=== PATIENT | female | born 1955 | race Caucasian/White ===

== ENCOUNTER 2016-09-11 08:29 | Day surgery (SDC) | payer BC ==
[~2016-09-11] VITALS: Ht 180.3 cm; Wt 75.1 kg
[2016-09-11 08:59] VITALS: BP 148/89; PULSE 90; RESP 18; TEMP 97.9; O2SAT 100
[2016-09-11] MEDS ORDERED: SODIUM CHLOR 0.9% 1000 ML INJ 1,000 ML IV SCH (09:00)
[2016-09-11] MEDS ORDERED: HYDR25TA5 PO (09:03)
[2016-09-11] MEDS ORDERED: HYDR-3516 PO (09:03)
[2016-09-11] MEDS ORDERED: POTA8TAB PO (09:03)
[2016-09-11] MEDS ORDERED: CYCL1TAB29 PO (09:03)
[2016-09-11] MEDS ORDERED: DICL1GEL TOPICAL (09:03)
[2016-09-11 09:22] LABS: AUTOMATED NEUTROPHIL # 2.7 TH/MM3 (1.8-7.7); BASOPHIL % 0.6 % (0.0-2.0); EOSINOPHIL # 0.1 TH/MM3 (0-0.4); EOSINOPHIL % 2.6 % (0.0-4.0); HEMATOCRIT 38.9 % (35.0-46.0); HEMO FLAGS DIFF FINAL; LYMPH % 29.6 % (9.0-44.0); LYMPHOCYTE # 1.4 TH/MM3 (1.0-4.8); MEAN CELL VOLUME 89.5 FL (80.0-100.0); MEAN CORPUSCULAR HEMOGLOBIN 30.9 PG (27.0-34.0); MEAN CORPUSCULAR HGB CONC 34.6 % (32.0-36.0); MONO % 8.9 % (0.0-8.0); NEUT % 58.3 % (16.0-70.0); PLATELET COUNT 239 TH/MM3 (150-450); RED BLOOD COUNT 4.35 MIL/MM3 (4.00-5.30); RED CELL DISTRIBUTION WIDTH 13.1 % (11.6-17.2); WHITE BLOOD COUNT 4.7 TH/MM3 (4.0-11.0)
[2016-09-11 09:32] LABS: PROTHROMBIN TIME - PATIENT 10.7 SEC (9.8-11.6)
[2016-09-11 09:44] LABS: BICARBONATE 32.6 MEQ/L (21.0-32.0)
[2016-09-11 09:54] LABS: POTASSIUM 2.7 MEQ/L (3.5-5.1)
[2016-09-11] MEDS ORDERED: POTASSIUM CHLORIDE 20 MEQ CONTROLLED RELEASE TAB PO ONE ×2 (09:58→12:15)
[2016-09-11] MEDS ORDERED: MIDAZOLAM HCL 2 MG/2 ML VIAL ONE ×4 (11:23→12:20)
[2016-09-11] MEDS ORDERED: SODIUM BICARBONATE 8.4% INJ 50 ML ONE (11:23)
[2016-09-11] MEDS ORDERED: LIDOCAINE 1%/EPINEPHrine 1:100,000 SOLN 20 ML VIAL ONE (11:25)
[2016-09-11] MEDS ORDERED: HEPARIN-NS/PF INJ 500 ML ONE (11:53)
[2016-09-11] MEDS ORDERED: LIDOCAINE HCL 1% PF 30 ML VIAL ONE (11:53)
[2016-09-11] MEDS ORDERED: MIDAZOLAM HCL 5 MG/5 ML VIAL ONE (12:35)
--- NOTE | 2016-09-13 14:16 | MP ---
cc: BENITO DEGROOT DATE OF SURGERY: 09/11/2016 PREOPERATIVE DIAGNOSIS Venous ulcer in the right lower extremity. POSTOPERATIVE DIAGNOSIS Venous ulcer in the right lower extremity. PROCEDURE PERFORMED Right lower extremity greater saphenous vein ablation. SURGEON Dr. Degroot. SEDATION Moderate. ESTIMATED BLOOD LOSS Minimal. PROCEDURE The patient's right leg was prepped and draped in sterile fashion from the iliac crest down to the toes. I used duplex ultrasound to access the below-knee right greater saphenous vein. I did use 1% lidocaine for the skin and then using the Seldinger technique exchanged for a 7-[place] sheath. Once I exchanged for the sheath I tried to advance my [employer] radiofrequency ablation catheter through the sheath up through the greater saphenous vein. I was able to make it just above the level of the knee without being able to advance any further. I also tried to advance it over __4 wire, was not able to advance it. I placed tumescent anesthesia around the vein at this level, even though it was a short distance, I performed an ablation for two cycles in 40 seconds below the level and across the level of the knee and the greater saphenous vein. Afterwards I pulled the catheter out and applied pressure. I was able to get in just above an area of a large venous tortuosity in the lower to mid thigh using a similar technique. I then advanced my catheter up to the saphenofemoral junction pullbacks approximately 2.5 cm. Performed an ablation after I performed tumescent anesthesia on this area as well. Afterwards I performed greater saphenous vein ablation of the right greater saphenous vein. I then removed my sheath and the catheter and applied pressure. I did use a dressing from the ankle all the way up to the leg with reinforcements of 4x4s and Matty bandages, especially around the level of my entry sites. I did perform ultrasound before the end of the procedure which showed there did not appear to be a DVT. The patient tolerated the procedure well and was taken to the PACU at the end of the case. DO BRIAN Hemphill/TLL /4:40 PM /1:54 PM
== END 2016-09-11 16:18 | disposition home or self-care (01) ==
LOC: HDIC 08:29 → HCAT 08:29
PROVIDERS: ATTEND Surgery
DX: I87.2 Venous insufficiency (chronic) (peripheral) (principal); L97.919 Non-pressure chronic ulcer of unspecified part of right lower leg with unspecified severity
CPT/HCPCS: 36475; 80048; 85025; 85610; J1644; J2250; J3010

== ENCOUNTER 2016-12-03 06:20 | Day surgery (SDC) | payer BC ==
[~2016-12-03] VITALS: Ht 180.3 cm; Wt 78.0 kg
[~2016-12-03 06:20] MED LIST: CYCL1TAB29 PO; DICL1GEL TOPICAL; HYDR-3516 PO; HYDR25TA5 PO; POTA8TAB PO
[2016-12-03 07:03] VITALS: BP 145/96; PULSE 18; RESP 18; TEMP 98.1; O2SAT 100
[2016-12-03 07:09] LABS: AUTOMATED NEUTROPHIL # 3.3 TH/MM3 (1.8-7.7); BASOPHIL % 0.5 % (0.0-2.0); EOSINOPHIL # 0.1 TH/MM3 (0-0.4); EOSINOPHIL % 1.9 % (0.0-4.0); HEMATOCRIT 40.6 % (35.0-46.0); HEMO FLAGS DIFF FINAL; LYMPH % 32.5 % (9.0-44.0); LYMPHOCYTE # 1.9 TH/MM3 (1.0-4.8); MEAN CELL VOLUME 89.5 FL (80.0-100.0); MEAN CORPUSCULAR HEMOGLOBIN 30.4 PG (27.0-34.0); MONO % 6.9 % (0.0-8.0); NEUT % 58.2 % (16.0-70.0); PLATELET COUNT 297 TH/MM3 (150-450); RED BLOOD COUNT 4.53 MIL/MM3 (4.00-5.30); RED CELL DISTRIBUTION WIDTH 13.9 % (11.6-17.2); WHITE BLOOD COUNT 5.7 TH/MM3 (4.0-11.0)
[2016-12-03] MEDS ORDERED: PERC5TAB12 PO (07:11)
[2016-12-03] MEDS ORDERED: VOLT1GEL4 TOPICAL (07:11)
[2016-12-03 07:15] LABS: PROTHROMBIN TIME - PATIENT 10.6 SEC (9.8-11.6)
[2016-12-03 07:31] LABS: BICARBONATE 34.2 MEQ/L (21.0-32.0)
[2016-12-03] MEDS ORDERED: LIDOCAINE 1%/EPINEPHrine 1:100,000 SOLN 20 ML VIAL ONE (07:49)
[2016-12-03] MEDS ORDERED: SODIUM BICARBONATE 8.4% INJ 50 ML ONE (07:49)
[2016-12-03] MEDS ORDERED: HEPARIN-NS/PF INJ 500 ML ONE (07:49)
[2016-12-03] MEDS ORDERED: LIDOCAINE HCL 1% PF 30 ML VIAL ONE (08:43)
[2016-12-03] MEDS ORDERED: MIDAZOLAM HCL 2 MG/2 ML VIAL ONE (08:43)
[2016-12-03] MEDS ORDERED: MIDAZOLAM HCL 5 MG/5 ML VIAL ONE ×2 (08:57→09:16)
--- NOTE | 2016-12-03 10:00 | CATHPROC ---
[employer] HIS Report Study Information Study Number Admission Scheduled Start Study Start [id number] Dec 03 2016 6:20AM 12/03/2016 Dec 03 2016 8:16AM [place] [facility] Endovascular Study Admit Source Facility Department Other [facility] - Disease Case Manager Physician and Clinical Staff Initial Noe Wren Cleaning Crew Member Carlos Read RN Equipment Time Security Assurance Analyst Description Size Mfg Part Number Used/Scraped CATHETER, FR7 CLOSURE FAST [id number] 08:19 MEDTR[employer]IC 100CM Used RFA 100CM *[id number] KIT, CLOSURE FAST TUMESCENT TIK-01 *[id number] 08:19 [employer] Used INFILTRATION -KIT 08:19 [employer] PACK, EMULSION OPERATOR CLOSUREFAST CFP Used SHEATH, FR7 CLOSURE FAST 08:19 [employer] 7CM [id number] Used MICROINTRODUCER History: Risk Factors Family History of Hypertension Dyslipidemia Previous [place] Previous Heart Failure Premature CAD No No No No No Prior Valve Prior PCI Prior CABG Surgery No No No Cerebrovascular Peripheral Artery Chronic Lung On Dialysis Diabetes Disease Disease Disease No No No No No History: Other Current Smoker Method Quit Packs a Day Years Used Pack Years No Cigarettes 36 Years Ago 1 17 17 Labs Hgb (g/dl) Hct (%) WBC (l/cumm) Platelets (thousands) 11.60-17.00 35.00-51.00 4.00-11.00 150.00-450.00 13.8 40.6 5.7 297 Na (meq/l) K (meq/l) 136.00-145.00 3.50-5.10 139 3 INR (PTT:PT) 0.90-1.10 1 CPK-MB (ng/ML) 0.50-3.60 Not Drawn Medication Medication Total Dose (Bolus/Oral) Medication Total Dosage/Unit 1% XYLOCAINE 20 mL FENTANYL 350 mcg VERSED 12 mg Medications (Bolus/Oral) Medication Time Given Dosage/Unit Administered By Reason VERSED 12/03/2016 8:46:01 AM 2 mg Carlos Read RN 2 mg VERSED given in lab by Carlos Read RN via Peripheral IV. Ordered by Noe Reich. FENTANYL 12/03/2016 9:00:37 AM 50 mcg Carlos Read RN 50 mcg FENTANYL given in lab by Carlos Read RN via Peripheral IV. Ordered by Noe Reich. 1% XYLOCAINE 12/03/2016 9:02:45 AM 20 mL Noe Reich 20 mL 1% XYLOCAINE given in lab by Noe Reich via Subcutaneous. Ordered by Noe Reich. Left l eg VERSED 12/03/2016 9:03:12 AM 2 mg Jacek CARPIO, Carlos 2 mg VERSED given in lab by Carlos Read RN via Peripheral IV. Ordered by Noe Reich. FENTANYL 12/03/2016 9:03:58 AM 50 mcg Jacek RN, Carlos 50 mcg FENTANYL given in lab by Carlos Read RN via Peripheral IV. Ordered by Noe Reich. FENTANYL 12/03/2016 9:10:45 AM 50 mcg Damir, Noe 50 mcg FENTANYL given in lab by Noe Reich via Peripheral IV. Ordered by Noe Reich. VERSED 12/03/2016 9:11:10 AM 2 mg Noe Reich 2 mg VERSED given in lab by Noe Reich via Peripheral IV. Ordered by Noe Reich. FENTANYL 12/03/2016 9:15:46 AM 50 mcg Jacek CARPIO, Carlos 50 mcg FENTANYL given in lab by Carlos Read RN via Peripheral IV. Ordered by Noe Reich. VERSED 12/03/2016 9:16:10 AM 1 mg Jacek CARPIO, Carlos 1 mg VERSED given in lab by Carlos Read RN via Peripheral IV. Ordered by Noe Reich. FENTANYL 12/03/2016 9:20:41 AM 50 mcg Jacek CARPIO, Carlos 50 mcg FENTANYL given in lab by Carlos Read RN via Peripheral IV. Ordered by Noe Reich. VERSED 12/03/2016 9:21:52 AM 2 mg Jacek CARPIO, Carlos 2 mg VERSED given in lab by Carlos Read RN via Peripheral IV. Ordered by Noe Reich. VERSED 12/03/2016 9:30:40 AM 1 mg Jacek CARPIO, Carlos 1 mg VERSED given in lab by Carlos Read RN via Peripheral IV. Ordered by Noe Reich. FENTANYL 12/03/2016 9:31:30 AM 50 mcg Jacek CARPIO, Carlos 50 mcg FENTANYL given in lab by Carlos Read RN via Peripheral IV. Ordered by Noe Reich. VERSED 12/03/2016 9:35:31 AM 2 mg Jacek CARPIO, Carlos 2 mg VERSED given in lab by Carlos Read RN via Peripheral IV. Ordered by Noe Reich. FENTANYL 12/03/2016 9:36:49 AM 50 mcg Carlos Read RN 50 mcg FENTANYL given in lab by Carlos Read RN via Peripheral IV. Ordered by Noe Reich. Medication (Drip) Medication Time Given Dosage/Unit Concentration/Unit Diluent (ml) Solution IV Solutions 12/03/2016 8:45:16 AM 0 mL (IV) 500 NaCl .9 IV Solutions given in lab by Noe Reich in Right Antecubital via Peripheral IV. Pump/Drip Flow = 20 ml/hr using NaCl .9. Ordered by Noe Reich. Chronological Log Time Study Chronological Log 8:30:40 Patient arrived via Bed. 8:30:44 Patient Name, D.O.B, / Armband Verified By R.N. Vitals capture started with the following parameters, Patient=Adult, Interval=5 min, Initial Pre bcagu=066 mmHg, 8:43:03 Deflation Rate=5 mmHg 8:44:04 HR=85 bpm, VLPU=269/86 mmhg, GdA5=715.0 %, Resp=21 B/min, Womack=2 8:44:40 HR=92 bpm, ARJQ=985/82 mmhg, BbA5=079.0 %, Resp=54 B/min, Womack=2 8:44:49 A # 20 IV was noted in the Antecubital (right). Grade = 0 IV Solutions given in lab by Noe Reich in Right Antecubital via Peripheral IV. Pump/Drip Fl ow = 20 ml/hr using 8:45:16 NaCl .9. Ordered by Noe Reich. 8:45:30 Entire left leg prepped. 8:46:01 2 mg VERSED given in lab by Carlos Read RN via Peripheral IV. Ordered by Noe Reich. 8:48:41 HR=88 bpm, NFSS=995/81 mmhg, VpM7=532.0 %, Resp=17 B/min, Womack=2 8:53:40 HR=90 bpm, CICC=585/76 mmhg, MkX3=031.0 %, Resp=28 B/min, Womack=2 8:58:39 HR=88 bpm, CLCA=527/83 mmhg, JcC1=041.0 %, Resp=14 B/min, Womack=2 9:00:00 MD arrived. 9:00:37 50 mcg FENTANYL given in lab by Carlos Read RN via Peripheral IV. Ordered by Noe Reich . 9:00:52 Attempting to access Lower Left Leg Vein. Time Out. Correct patient, correct procedure,correct physician, ,power injector not loaded with contrast with surgical 9:02:21 team present. Time Out Concurred by MD, individual staff and POCKET OPERATOR in procedure. Not loaded at th is time. 9:02:42 Presedation re-assessment performed by Disease Case Manager RN. 9:02:44 Case Start 9:02:45 20 mL 1% XYLOCAINE given in lab by Noe Reich via Subcutaneous. Ordered by Kishan Reich Left leg 9:03:12 2 mg VERSED given in lab by Carlos Read RN via Peripheral IV. Ordered by Noe Reich. 9:03:24 Reference ECG taken 9:03:58 50 mcg FENTANYL given in lab by Carlos Read RN via Peripheral IV. Ordered by Noe Reich . 9:08:39 HR=96 bpm, UJOQ=766/75 mmhg, OuR1=881.0 %, Resp=15 B/min, Womack=2 9:10:45 50 mcg FENTANYL given in lab by Noe Reich via Peripheral IV. Ordered by Noe Reich. 9:11:10 2 mg VERSED given in lab by Noe Reich via Peripheral IV. Ordered by Noe Reich. 9:13:40 HR=94 bpm, LNZA=526/71 mmhg, PgX4=061.0 %, Resp=48 B/min, Womack=2 9:15:46 50 mcg FENTANYL given in lab by Carlos Read RN via Peripheral IV. Ordered by Noe Reich . 9:16:10 1 mg VERSED given in lab by Carlos Read RN via Peripheral IV. Ordered by Noe Reich. 9:18:39 HR=95 bpm, JHQU=735/69 mmhg, CaT9=321.0 %, Resp=10 B/min, Womack=2 9:19:39 Access site was ~ACCESS SITE~. Left lower leg vein A SHEATH, FR7 CLOSURE FAST MICROINTRODUCER 7CM was advanced into the Fem Vein (left) using the 9:19:58 Percutaneous technique. 9:20:41 50 mcg FENTANYL given in lab by Carlos Read RN via Peripheral IV. Ordered by Noe Reich . 9:21:52 2 mg VERSED given in lab by Carlos Read RN via Peripheral IV. Ordered by Neo Reich. 9:23:42 HR=94 bpm, ZOEN=205/67 mmhg, WdR8=109.0 %, Resp=26 B/min, Womack=2 9:28:20 Starting Ablation on Left Leg Great S. Vein. 9:28:41 HR=94 bpm, GKAW=045/61 mmhg, BjD8=938.0 %, Resp=7 B/min, Womack=2 9:30:40 1 mg VERSED given in lab by Carlos Read RN via Peripheral IV. Ordered by Noe Reich. 9:31:30 50 mcg FENTANYL given in lab by Carlos Read RN via Peripheral IV. Ordered by Julio Reich 9:31:50 Ablation in process. 9:33:38 HR=93 bpm, OJNF=575/70 mmhg, BbA5=449.0 %, Resp=38 B/min, Womack=2 9:35:24 Ablation completed. 9:35:31 2 mg VERSED given in lab by Carlos Read RN via Peripheral IV. Ordered by Noe Reich. 9:36:49 50 mcg FENTANYL given in lab by Carlos Read RN via Peripheral IV. Ordered by Julio Reich 9:38:22 Case End 9:38:43 HR=91 bpm, VNBV=618/64 mmhg, MbM5=745.0 %, Resp=12 B/min, Womack=2 9:39:14 Sheath removed. Manual pressure held. 9:39:32 Left leg wrapped with kerlex and henrique bandage. 9:43:42 HR=93 bpm, ZRMU=341/65 mmhg, GtP4=957.0 %, Resp=10 B/min, Womack=2 9:48:41 HR=93 bpm, KMUS=801/63 mmhg, JbU3=457.0 %, Resp=14 B/min, Womack=2 9:53:42 PG=003 bpm, BWFL=737/65 mmhg, FvI8=198.0 %, Resp=11 B/min, Womack=2 9:57:56 Vitals capture stopped. 9:58:05 Bedside Report will be given. End Study - Contrast Media Used In Study Contrast Total Opened (mL) Total Used (mL) Total Wasted (mL) Unspecified 0 0 0 End Study - Radiation Exposure Fluoro Time (minutes) 0.0 End Study - Patient Disposition Complications Transferred To No Telemetry Bed
--- NOTE | 2016-12-05 07:37 | MP ---
cc: NOE DEGROOT DATE OF SURGERY 12/03/2016 SURGEON Noe Degroot DO PREOPERATIVE DIAGNOSIS Venous insufficiency left lower extremity. POSTOPERATIVE DIAGNOSIS Venous insufficiency left lower extremity. PROCEDURE Left greater saphenous vein ablation with radiofrequency ablation with [employer] device PROCEDURE NOTE The patient's left leg was prepped, draped in a sterile fashion. I placed the patient in reverse Trendelenburg and got access to the left greater saphenous vein above the level of the knee with an 18 gauge access needle. I did use tumescent anesthesia and local anesthetic as needed for this procedure. Once I got access to the vessel, I exchanged using Seldinger technique for a 7-Arabic sheath. Once I exchanged for the sheath, I advanced my radiofrequency catheter into the greater saphenous vein. I made sure that I was approximately greater than 2 cm distal to the saphenofemoral junction. I made sure there was a wheal of tumescent anesthesia, a bull's-eye pattern from the access point up through and just short of the saphenofemoral junction. I then performed radiofrequency ablation with compression along the length of the vein in each area. At the end of procedure, I removed the sheath and catheter and applied pressure just above the level of the knee. We then placed multiple 4x4 dressing with a Kerlix and Matty wrap from the foot up towards the groin. The patient tolerated procedure well. DO BRIAN Hemphill/DJL /9:43 AM /7:34 AM
== END 2016-12-03 12:11 | disposition home or self-care (01) ==
LOC: HCAT 06:20 → HDIC 06:21 → HCAT 12:11
PROVIDERS: ATTEND Surgery
PROC: 065Q3ZZ Destruction of Left Saphenous Vein, Percutaneous Approach (ICD-10-PCS; principal; 2016-12-03 08:30)
DX: I87.2 Venous insufficiency (chronic) (peripheral) (principal)
CPT/HCPCS: 01930; 36475; 80048; 85025; 85610; J1644; J2250; J3010